=== PATIENT | male | born 1965 | race Caucasian/White ===

== ENCOUNTER 2018-04-22 06:18 | Day surgery (SDC) | payer BC ==
[~2018-04-22] VITALS: Ht 180.3 cm; Wt 162.8 kg
[~2018-04-22 06:18] MED LIST: ALBU3IS INH; ALBU90OI6 INH; BENADRYL25 MG PO; BETA.05TCA TOP; IBUP600 PO; QVAR REDIHALE10.6 G1 INH; SILD25T PO
--- NOTE | 2018-04-22 06:54 | NUR ---
History, Chart, Medications and Allergies reviewed before start of procedure. Patient confirms NPO status and agrees with scheduled surgery. Patient States Post-Procedure ride home has been arranged with his friend.
--- NOTE | 2018-04-22 07:01 | NUR ---
Lungs clear T/O to Auscultation.
--- NOTE | 2018-04-22 07:59 | NUR ---
04/22/18 0759 Stephon Luis See Anesthesia record. O2 VIA N/C INTACT THROUGHOUT SEDATION/PROCEDURE. MONITOR INTACT WITH CONTINUOUS PULSE OXIMETRY AND INTERMITTENT BP. Glasses Removed
--- NOTE | 2018-04-22 09:14 | NUR ---
Patient up to Ambulate independently. Gait steady. Discharge instructions reviewed with patient. Patient verbalizes understanding. Copy given to patient to take home. Patient States Post-Procedure ride home has been arranged. Discharged via wheelchair to private car for ride home.
== END 2018-04-22 23:14 | disposition home or self-care (01) ==
LOC: ORSCMMR 06:18 → ORD 08:00 → ORSCMMR 08:00
PROVIDERS: Internal Medicine Gastroenterology
PROC: 0DBL8ZX Excision of Transverse Colon, Via Natural or Artificial Opening Endoscopic, Diagnostic (ICD-10-PCS; principal; 2018-04-22 08:00)
PROC: 0DBN8ZX Excision of Sigmoid Colon, Via Natural or Artificial Opening Endoscopic, Diagnostic (ICD-10-PCS; principal; 2018-04-22 08:00)
DX: Z12.11 Encounter for screening for malignant neoplasm of colon (principal); D12.3 Benign neoplasm of transverse colon; K63.5 Polyp of colon; K57.30 Diverticulosis of large intestine without perforation or abscess without bleeding; K64.8 Other hemorrhoids; J44.9 Chronic obstructive pulmonary disease, unspecified; Z87.891 Personal history of nicotine dependence; E66.01 Morbid (severe) obesity due to excess calories; Z68.43 Body mass index [BMI] 50.0-59.9, adult; Z79.899 Other long term (current) drug therapy
CPT/HCPCS: 88305; J7120

== ENCOUNTER 2022-11-04 09:35 | Observation (INO) | payer OTHER ==
[~2022-11-04] VITALS: Ht 180.3 cm; Wt 157.3 kg
[2022-11-04] MEDS ORDERED: RESTASIS MULTI5.5 ML BOTHEYES (10:12)
[2022-11-04 10:17] LABS: BASOPHILS ABSOLUTE AUTO 0.05 K/mm3 (0.00-0.23); BASOPHILS PERCENT AUTO 1 % (0-2); EOSINOPHILS ABSOLUTE AUTO 0.22 K/mm3 (0.00-0.68); EOSINOPHILS PERCENT AUTO 3 % (0-6); Hemoglobin 14.3 g/dL (13.5-17.5); IMMATURE GRAN ABSOLUTE AUTO 0.03 K/mm3 (0.00-0.10); IMMATURE GRAN PERCENT AUTO 0 % (0-1); LYMPHOCYTES ABSOLUTE AUTO 1.89 K/mm3 (0.84-5.20); LYMPHOCYTES PERCENT AUTO 26 % (21-46); MONOCYTES ABSOLUTE AUTO 0.69 K/mm3 (0.16-1.47); MONOCYTES PERCENT AUTO 10 % (4-13); Mean Corpuscular HGB 27.6 pg (26.0-34.0); Mean Corpuscular HGB Conc 32.5 g/dL (31.5-36.5); Mean Corpuscular Volume 85 fL (80-100); Mean Platelet Volume 10.2 fL (9.1-12.4); NEUTROPHILS ABSOLUTE AUTO 4.29 K/mm3 (1.96-9.15); NEUTROPHILS PERCENT AUTO 60 % (41-73); Platelet Count 285 K/mm3 (150-400); RDW Coefficient Variation 13.2 % (11.7-14.2); RDW Standard Deviation 40.6 fL (35.1-46.3); Red Blood Cell Count 5.19 M/mm3 (4.30-5.90); White Blood Cell Count 7.17 K/mm3 (4.00-11.30)
[2022-11-04 10:38] LABS: Albumin, Blood 3.4 g/dL (3.4-5.0); Albumin/Globulin Ratio 0.9 (0.8-1.8); Bilirubin, Total 0.6 mg/dL (0.1-1.0); Bun/Creatinine Ratio 20.4 (12.0-20.0); Calcium, Blood 8.8 mg/dL (8.5-10.1); Creatinine, Blood 0.73 mg/dL (0.60-1.20); Globulin, Blood 3.8 g/dL (2.2-4.0); Potassium, Blood 4.1 mmol/L (3.5-5.5); Total Protein, Blood 7.2 g/dL (6.4-8.2)
[2022-11-04 16:01] VITALS: BP 157/105
--- NOTE | 2022-11-04 16:32 | NUR ---
ER ADMIT New ER admit, Patient is alert & oriented x4. Telemetry in place, Aflutter @78. Reports SOB, positioned in semi-fowlers. Vitals stable, sats stable on RA. Patient is independent in the room, IV lasix administred. Daily weights & strict I/Os ordered. Provided education on ignition sources and the risks of injury while using an ignition source around oxygen. Patient verbalizes understanding and denies having any ignition source on him or in his items Plan to monitor over night, and to do ECHO.
[2022-11-04 19:27] VITALS: BP 155/110
[2022-11-04 19:34] VITALS: BP 150/90
--- NOTE | 2022-11-05 | NUR ---
RN NOTE MR WEEMS IS ON TELEMETRY IN [place] ACCORDING TO ESTIVEN ECHOLS, NO CALLS FROM [facility]. PT REQUESTED BENADRYL AND MELATONIN FOR SLEEP, TELEPHONE ORDER FOR SAME FROM DR BHATIA ENTERED INTO hovelstay. PT C/O NECH ACHE. HEAT PAD APPLIED. PT APPEARS TO BE SLEEPING NOW. PT WAS EDUCATED RE IGNITION SOURCES AND RISK OF INJURY WHEN OXYGEN IS IN USE. PT VERBALISED UNDERSTANDING. RISK ASSESSMENT ON Q1-2HRLY ROUNDS.
[2022-11-05 04:16] VITALS: BP 138/94
--- NOTE | 2022-11-05 04:58 | NUR ---
SHIFT SUMMARY MR WEEMS APPEARED TO BE SLEEPING WHEN CHECKED ON, BUT ON QUESTIONING THIS AM HE SAID THAT HE DID NOT SLEEP VERY WELL, AND WOULD BITE HIS TONGUE AND WAKE HIMSELF UP. NO CALLS FROM [facility] [employer] OVERNIGHT. BED LOW, CALL LIGHT IN REACH.
[2022-11-05 05:28] LABS: BASOPHILS ABSOLUTE AUTO 0.06 K/mm3 (0.00-0.23); BASOPHILS PERCENT AUTO 1 % (0-2); EOSINOPHILS ABSOLUTE AUTO 0.27 K/mm3 (0.00-0.68); EOSINOPHILS PERCENT AUTO 4 % (0-6); Hematocrit 40.1 % (37.0-53.0); Hemoglobin 12.8 g/dL (13.5-17.5); IMMATURE GRAN ABSOLUTE AUTO 0.02 K/mm3 (0.00-0.10); IMMATURE GRAN PERCENT AUTO 0 % (0-1); LYMPHOCYTES ABSOLUTE AUTO 1.94 K/mm3 (0.84-5.20); LYMPHOCYTES PERCENT AUTO 27 % (21-46); MONOCYTES ABSOLUTE AUTO 0.79 K/mm3 (0.16-1.47); MONOCYTES PERCENT AUTO 11 % (4-13); Mean Corpuscular HGB 27.6 pg (26.0-34.0); Mean Corpuscular HGB Conc 31.9 g/dL (31.5-36.5); Mean Corpuscular Volume 87 fL (80-100); Mean Platelet Volume 10.7 fL (9.1-12.4); NEUTROPHILS ABSOLUTE AUTO 4.11 K/mm3 (1.96-9.15); NEUTROPHILS PERCENT AUTO 57 % (41-73); Platelet Count 258 K/mm3 (150-400); RDW Coefficient Variation 13.3 % (11.7-14.2); RDW Standard Deviation 41.9 fL (35.1-46.3); Red Blood Cell Count 4.63 M/mm3 (4.30-5.90); White Blood Cell Count 7.19 K/mm3 (4.00-11.30)
[2022-11-05 06:12] LABS: Albumin, Blood 2.9 g/dL (3.4-5.0); Albumin/Globulin Ratio 0.9 (0.8-1.8); Bilirubin, Total 0.4 mg/dL (0.1-1.0); Bun/Creatinine Ratio 17.4 (12.0-20.0); Calcium, Blood 8.6 mg/dL (8.5-10.1); Creatinine, Blood 0.86 mg/dL (0.60-1.20); Globulin, Blood 3.2 g/dL (2.2-4.0); Potassium, Blood 4.1 mmol/L (3.5-5.5); Total Protein, Blood 6.1 g/dL (6.4-8.2)
--- NOTE | 2022-11-05 06:49 | NUR ---
RN NOTE CALL FROM [facility] AND NOTIFIED THAT PT CONVERTED TO SR AT 0230HRS.
[2022-11-05 08:52] VITALS: BP 143/76
[2022-11-05] MEDS ORDERED: METO50ER PO (12:34)
[2022-11-05] MEDS ORDERED: ELIQUIS5 M2 PO (12:34)
--- NOTE | 2022-11-05 12:57 | NUR ---
DISCHARGE SUMMARY PT AxOx4. PLEASANT AND COOPERATIVE WITH CARE. PT REPORTS MILD INTERMITTENT SOB, BUT DOES NOT REQUIRE O2 SUPPLEMENT. PT DENIES CP THIS SHIFT. PER [employer] INSTRU[employer], TELE SHOWS HR SINUS RHYTHM. PT IS DC'ING HOME TODAY. PT GIVEN DC INSTRUCTIONS INCLUDING DC MED LIST, FOLLOW UP APPOINTMENT INFO AND PATIENT EDUCATION RELATING TO DIAGNOSIS/NEW MEDS. PT VERBALIZES UNDERSTANDING. PT EDUCATION PROVIDED ON FIRE RISK AND SAFETY. PT SAFELY ESCORTED OUT WITH THIS RN.
== END 2022-11-05 12:49 | disposition home or self-care (01) ==
LOC: ER 09:35 → MEDS 09:36
PROVIDERS: Physician Assistant; ADMIT Internal Medicine
DX: I48.91 Unspecified atrial fibrillation (principal); J44.9 Chronic obstructive pulmonary disease, unspecified; G47.33 Obstructive sleep apnea (adult) (pediatric); E11.9 Type 2 diabetes mellitus without complications; Z87.891 Personal history of nicotine dependence; Z88.5 Allergy status to narcotic agent; Z79.899 Other long term (current) drug therapy
CPT/HCPCS: 36415; 71046; 80053; 83735; 83880; 84484; 85025; 93005; 93010; 93306; 94640; 94664; 94760; 96365-59; 96372; 96375; 96376-59; 99285-25; A9270; G0378; J1650; J1940

== ENCOUNTER 2023-04-27 10:56 | Emergency (ER) | payer OTHER ==
[~2023-04-27] VITALS: Ht 180.3 cm; Wt 154.2 kg
[~2023-04-27 10:56] MED LIST changes: +ELIQUIS5 M2 PO; +METO50ER PO; +RESTASIS MULTI5.5 ML BOTHEYES
[2023-04-27] MEDS ORDERED: FUROSEMIDE20 MG PO (11:25)
[2023-04-27] MEDS ORDERED: KLOR-CON 1010 ME9 PO (11:25)
[2023-04-27 11:37] LABS: BASOPHILS ABSOLUTE AUTO 0.05 K/mm3 (0.00-0.23); BASOPHILS PERCENT AUTO 1 % (0-2); EOSINOPHILS ABSOLUTE AUTO 0.23 K/mm3 (0.00-0.68); EOSINOPHILS PERCENT AUTO 3 % (0-6); Hematocrit 43.6 % (37.0-53.0); Hemoglobin 14.5 g/dL (13.5-17.5); IMMATURE GRAN ABSOLUTE AUTO 0.02 K/mm3 (0.00-0.10); IMMATURE GRAN PERCENT AUTO 0 % (0-1); LYMPHOCYTES ABSOLUTE AUTO 1.75 K/mm3 (0.84-5.20); LYMPHOCYTES PERCENT AUTO 25 % (21-46); MONOCYTES ABSOLUTE AUTO 0.54 K/mm3 (0.16-1.47); MONOCYTES PERCENT AUTO 8 % (4-13); Mean Corpuscular HGB 29.6 pg (26.0-34.0); Mean Corpuscular HGB Conc 33.3 g/dL (31.5-36.5); Mean Corpuscular Volume 89 fL (80-100); Mean Platelet Volume 10.1 fL (9.1-12.4); NEUTROPHILS ABSOLUTE AUTO 4.33 K/mm3 (1.96-9.15); NEUTROPHILS PERCENT AUTO 63 % (41-73); Platelet Count 254 K/mm3 (150-400); RDW Coefficient Variation 13.2 % (11.7-14.2); White Blood Cell Count 6.92 K/mm3 (4.00-11.30)
[2023-04-27 12:14] LABS: Albumin, Blood 3.4 g/dL (3.4-5.0); Albumin/Globulin Ratio 0.9 (0.8-1.8); Bilirubin, Total 0.4 mg/dL (0.1-1.0); Bun/Creatinine Ratio 19.9 (12.0-20.0); Calcium, Blood 8.5 mg/dL (8.5-10.1); Creatinine, Blood 0.76 mg/dL (0.60-1.20); Globulin, Blood 3.6 g/dL (2.2-4.0); Potassium, Blood 4.1 mmol/L (3.5-5.5)
[2023-04-27] MEDS ORDERED: METO25 PO (13:27)
[2023-04-27] MEDS ORDERED: METO100ER PO (13:27)
[2023-04-27 13:35] VITALS: BP 134/92
[2023-04-27] MEDS ORDERED: Toprol Xl50 MG PO (16:45)
[2023-04-27] MEDS ORDERED: Tambocor100 MG PO (16:45)
== END 2023-04-27 13:35 | disposition home or self-care (01) ==
LOC: ER 10:56
PROVIDERS: Student in an Organized Health Care Education/Training Program
DX: I48.92 Unspecified atrial flutter (principal); E11.9 Type 2 diabetes mellitus without complications; J44.9 Chronic obstructive pulmonary disease, unspecified; G47.33 Obstructive sleep apnea (adult) (pediatric); Z79.01 Long term (current) use of anticoagulants; Z79.899 Other long term (current) drug therapy; Z88.5 Allergy status to narcotic agent
CPT/HCPCS: 71046; 80053; 83735; 85025; 93005; 93010; 96361; 96365; 99284-25; J3475; J7030

== ENCOUNTER 2023-04-27 14:42 | Emergency (ER) | payer OTHER ==
[~2023-04-27] VITALS: Ht 180.3 cm; Wt 149.7 kg
[~2023-04-27 14:42] MED LIST changes: +FUROSEMIDE20 MG PO; +KLOR-CON 1010 ME9 PO; +METO100ER PO; +METO25 PO
[2023-04-27 16:15] VITALS: BP 137/76
[2023-04-27] MEDS ORDERED: Toprol Xl50 MG PO (16:45)
[2023-04-27] MEDS ORDERED: Tambocor100 MG PO (16:45)
== END 2023-04-27 17:01 | disposition home or self-care (01) ==
LOC: ER 14:42
DX: I48.92 Unspecified atrial flutter (principal); J44.9 Chronic obstructive pulmonary disease, unspecified; E11.9 Type 2 diabetes mellitus without complications; Z88.5 Allergy status to narcotic agent; Z79.899 Other long term (current) drug therapy; Z79.01 Long term (current) use of anticoagulants
CPT/HCPCS: 93005; 93010; 99284-25; A9270

== ENCOUNTER 2024-04-16 13:48 | Emergency (ER) | payer BC ==
[~2024-04-16] VITALS: Ht 167.6 cm; Wt 113.4 kg
[~2024-04-16 13:48] MED LIST changes: +Tambocor100 MG PO; +Toprol Xl50 MG PO
[2024-04-16 14:51] VITALS: BP 138/85
[2024-04-16] MEDS ORDERED: HYDROcodone 5-APAP 325 TAB PO ONE (15:10)
[2024-04-16] MEDS ORDERED: Methocarbamol 500 MG Tab PO ONE (15:10)
[2024-04-16 15:57] LABS: Source, Urine Clean Catch
[2024-04-16 16:00] LABS: Appearance, Urine Clear (Clear); Bilirubin, Urine Neg (Neg); Blood, Urine 1+ (Neg); Color, Urine Amber (P-Yellow); Glucose Qualitative, Urine Neg (Neg); Ketones, Urine 1+ (Neg); Leukocyte Esterase, Urine Neg (Neg); Nitrite, Urine Neg (Neg); Protein, Urine 2+ (Neg); Specific Gravity, Urine 1.015 (1.003-1.022); Urobilinogen, Urine 2+ (Normal); pH, Urine 6.5 (5.0-8.0)
[2024-04-16 16:17] LABS: Bacteria Many /hpf; Mucus Light (0-Heavy); Squamous Epithelial Cells Rare /hpf (Few); White Blood Cells, Urine 0-2 /hpf (0-5)
[2024-04-16] MEDS ORDERED: RX Prepack 6 Tabs Oxycodone 5mg UD ONE (16:55)
[2024-04-16] MEDS ORDERED: Percocet 5-3251 EACH PO ×2 (16:57→17:16)
[2024-04-16] MEDS ORDERED: Robaxin750 MG PO ×2 (16:57→17:16)
[2024-04-16] MEDS ORDERED: Naprosyn500 MG PO ×2 (16:57→17:16)
== END 2024-04-16 17:07 | disposition home or self-care (01) ==
LOC: ER 13:48
PROVIDERS: Physician Assistant
DX: M25.551 Pain in right hip (principal); M54.16 Radiculopathy, lumbar region; Z88.5 Allergy status to narcotic agent; Z79.01 Long term (current) use of anticoagulants; Z79.899 Other long term (current) drug therapy; E11.9 Type 2 diabetes mellitus without complications; J44.9 Chronic obstructive pulmonary disease, unspecified; G47.33 Obstructive sleep apnea (adult) (pediatric)
CPT/HCPCS: 73502; 81001; 87086; 99283-25; A9270

== ENCOUNTER → 2024-07-12 | Outpatient (CLI) | payer OTHER ==
[~2024-07-12] MED LIST changes: +Naprosyn500 MG PO; +Percocet 5-3251 EACH PO; +Robaxin750 MG PO
[2024-07-12 17:31] LABS: Microalbumin, Random Urine 48.5 mg/L (0.000-20.000)
== END | disposition home or self-care (01) ==
LOC: LAB SHORT 14:06 → LAB 14:06
PROVIDERS: Internal Medicine
DX: E11.9 Type 2 diabetes mellitus without complications (principal)
CPT/HCPCS: 82043; 82570